=== PATIENT | female | born 1935 | race Caucasian/White ===

== ENCOUNTER 2020-11-17 18:45 | Observation (INO) | payer OTHER ==
[~2020-11-17] VITALS: Ht 162.6 cm; Wt 86.1 kg
[2020-11-17 19:00] VITALS: BP 154/75
[2020-11-17] MEDS ORDERED: FURO20TA4 PO (20:39)
[2020-11-17] MEDS ORDERED: ALPR0.5T8 PO (20:39)
[2020-11-17] MEDS ORDERED: [UNRECOGNIZED DRUG - CODE] TP (20:39)
[2020-11-17] MEDS ORDERED: ATOR10 PO (20:49)
[2020-11-17] MEDS ORDERED: AMLO5TAB4 PO (20:49)
[2020-11-17] MEDS ORDERED: CARV3.12 PO (20:49)
[2020-11-17] MEDS ORDERED: EZET10TA48 PO (20:49)
[2020-11-17] MEDS ORDERED: CEFT1VIA15 IV (20:49)
[2020-11-17] MEDS ORDERED: ENOX40DI9 SQ (20:57)
[2020-11-17] MEDS ORDERED: ALBUHFA IH (20:57)
[2020-11-17] MEDS ORDERED: MORPHINE 4 MG SYG IV PRN (21:00)
[2020-11-17] MEDS ORDERED: HYDRALAZINE 20MG/ML VIAL IV PRN (21:00)
[2020-11-17] MEDS ORDERED: MORPHINE 2 MG SYG IV PRN (21:00)
[2020-11-17] MEDS ORDERED: TEMA15CA PO (21:06)
[2020-11-17] MEDS ORDERED: TEMAZEPAM 15 MG CAPSULE PO PRN (21:30)
[2020-11-17] MEDS ORDERED: TROLAMINE SALICYLATE CREAM 85 GM TUBE TP PRN (21:30)
[2020-11-17] MEDS ORDERED: ALPRAZOLAM 0.5 MG TABLET PO PRN (21:30)
[2020-11-17] MEDS: FAMOTIDINE 20MG VIAL IV SCH (22:49)
[2020-11-18] VITALS (13 sets, daily range): BP systolic 120–161; BP diastolic 46–76
[2020-11-18 04:07] LABS: BASOPHILS % (AUTO) 0.8 % (0.0-5.0); EOSINOPHILS % (AUTO) 3.5 % (0.0-8.0); LYMPHOCYTES % (AUTO) 43.8 % (21.0-51.0); MEAN CORPUSCULAR HEMOGLOBIN 27.7 pg (27.0-33.0); MEAN CORPUSCULAR HGB CONC 32.6 g/dL (32.0-36.0); MEAN CORPUSCULAR VOLUME 85.2 fL (79-99); MONOCYTES % (AUTO) 12.9 % (3.0-13.0); NEUTROPHILS % (AUTO) 38.9 % (40.0-77.0); PLATELET COUNT (AUTO) 217 K/uL (130-400); RED BLOOD CELL COUNT(AUTO) 4.58 MIL/uL (4.00-5.50); RED CELL DISTRIBUTION WIDTH 13.4 % (11.0-15.5); WHITE BLOOD COUNT (AUTO) 8.8 K/uL (4.8-10.8)
[2020-11-18 04:24] LABS: ALBUMIN 3.8 g/dL (3.5-5.0); BILIRUBIN,TOTAL 0.3 mg/dL (0.2-1.0); POTASSIUM 3.4 mmol/L (3.5-5.1); TOTAL PROTEIN, SERUM 7.1 g/dL (6.0-8.3)
[2020-11-18] MEDS ORDERED: LIDOCAINE HCL-MPF 1% 2ML VIAL IV PRN (04:30)
[2020-11-18] MEDS ORDERED: POTASSIUM CHLORIDE 20MEQ/100ML 100 ML IV PRN (04:30)
[2020-11-18 04:51] LABS: INR 1.03 (0.85-1.15); PROTHROMBIN TIME 11.2 SEC (9.6-11.6)
[2020-11-18 04:52] LABS: PARTIAL THROMBOPLASTIN TIME 27.6 SEC (26.3-35.5)
[2020-11-18] MEDS ORDERED: POTASSIUM CHLORIDE 20MEQ/100ML 100 ML IV ONE (05:42)
[2020-11-18] MEDS ORDERED: POTASSIUM CHLORIDE 10% ELIXIR 20 MEQ/15 ML UDCUP PO PRN (08:30)
[2020-11-18] MEDS ORDERED: IOHEXOL-350 50ML VIAL IV ONE (08:47)
[2020-11-18] MEDS ORDERED: IOHEXOL-350 75 ML VIAL IV ONE (08:47)
[2020-11-18] MEDS ORDERED: NITROGLYCERIN 2 MG VIAL IV ONE (08:47)
[2020-11-18] MEDS ORDERED: FENTANYL CITRATE PF 50 MCG/1 ML 2ML VIAL ONE (08:48)
[2020-11-18] MEDS ORDERED: MIDAZOLAM HCL 1 MG/ML 2ML VIAL ONE (08:48)
[2020-11-18] MEDS ORDERED: LIDOCAINE HCL 400MG/20ML VIAL ONE (08:48)
[2020-11-18] MEDS: ENOXAPARIN SODIUM 30 MG/0.3 ML SQ SCH (09:00)
[2020-11-18] MEDS ORDERED: ENOXAPARIN SODIUM 40 MG/0.4 ML SYRINGE SQ SCH (09:00)
[2020-11-18] MEDS ORDERED: FUROSEMIDE 20 MG TABLET PO SCH (09:00)
[2020-11-18] MEDS ORDERED: CARVEDILOL 3.125 MG TABLET PO SCH (09:00)
[2020-11-18] MEDS: FAMOTIDINE 20MG VIAL IV SCH (10:30)
[2020-11-18] MEDS: FUROSEMIDE 20 MG TABLET PO SCH ×2 (10:30→16:50)
[2020-11-18] MEDS: CEFTRIAXONE 1G VIAL IVP SCH (10:30)
[2020-11-18] MEDS: EZETIMIBE 10 MG TAB PO SCH (10:31)
[2020-11-18] MEDS: AMLODIPINE 5 MG TAB PO SCH (10:31)
[2020-11-18] MEDS: LISINOPRIL 10 MG TABLET PO SCH (10:35)
[2020-11-18] MEDS: KCL 20 MEQ ERTAB PO PRN ×3 (10:35→14:38)
[2020-11-18] MEDS ORDERED: PHARMACY COMMUNICATION MISC SCH (15:30)
[2020-11-18] MEDS: CARVEDILOL 3.125 MG TABLET PO SCH (20:21)
[2020-11-18] MEDS ORDERED: ATORVASTATIN 20 MG TABLET PO SCH (21:00)
[2020-11-19 03:54] LABS: CREATININE 1.2 mg/dL (0.5-1.5); POTASSIUM 4.1 mmol/L (3.5-5.1)
[2020-11-19 03:57] VITALS: BP 118/58
[2020-11-19 05:51] LABS: HEMATOCRIT 40.7 % (36-48); MEAN CORPUSCULAR HEMOGLOBIN 28.3 pg (27.0-33.0); MEAN CORPUSCULAR HGB CONC 31.4 g/dL (32.0-36.0); RED BLOOD CELL COUNT(AUTO) 4.52 MIL/uL (4.00-5.50); RED CELL DISTRIBUTION WIDTH 13.7 % (11.0-15.5); WHITE BLOOD COUNT (AUTO) 9.2 K/uL (4.8-10.8)
[2020-11-19 07:48] VITALS: BP 125/60
[2020-11-19] MEDS: LISINOPRIL 10 MG TABLET PO SCH (08:29)
[2020-11-19] MEDS: CARVEDILOL 3.125 MG TABLET PO SCH (08:30)
[2020-11-19] MEDS: AMLODIPINE 5 MG TAB PO SCH (08:30)
[2020-11-19] MEDS: FUROSEMIDE 20 MG TABLET PO SCH (08:30)
[2020-11-19] MEDS: CEFTRIAXONE 1G VIAL IVP SCH (08:31)
[2020-11-19] MEDS: EZETIMIBE 10 MG TAB PO SCH (08:31)
[2020-11-19] MEDS: ENOXAPARIN SODIUM 30 MG/0.3 ML SQ SCH (08:34)
[2020-11-19] MEDS ORDERED: FAMOTIDINE 20MG TAB PO SCH (09:00)
[2020-11-19 11:25] VITALS: BP 135/57
[2020-11-19] MEDS ORDERED: AMLO5TAB4 PO (13:16)
[2020-11-19] MEDS ORDERED: FURO20TA4 PO (13:16)
[2020-11-19] MEDS ORDERED: ATOR10 PO (13:16)
[2020-11-19] MEDS ORDERED: CEPH500B PO (13:16)
[2020-11-19] MEDS ORDERED: CARV3.12 PO (13:16)
[2020-11-19] MEDS ORDERED: POTA10TA18 PO (13:17)
[2020-11-19] MEDS ORDERED: LISI10TA24 PO (13:30)
== END 2020-11-19 16:57 | disposition home or self-care (01) ==
LOC: 4DH 18:45 → INTOOBSV 18:45
PROVIDERS: ADMIT Internal Medicine; ATTEND Internal Medicine
DX: I25.10 Atherosclerotic heart disease of native coronary artery without angina pectoris (principal); I25.5 Ischemic cardiomyopathy; I11.0 Hypertensive heart disease with heart failure; I50.43 Acute on chronic combined systolic (congestive) and diastolic (congestive) heart failure; I44.7 Left bundle-branch block, unspecified; F41.9 Anxiety disorder, unspecified; M19.90 Unspecified osteoarthritis, unspecified site; E78.5 Hyperlipidemia, unspecified; N30.90 Cystitis, unspecified without hematuria; B96.20 Unspecified Escherichia coli [E. coli] as the cause of diseases classified elsewhere; Z85.3 Personal history of malignant neoplasm of breast; Z90.710 Acquired absence of both cervix and uterus; Z79.899 Other long term (current) drug therapy; Z98.890 Other specified postprocedural states
CPT/HCPCS: 36415 ×2; 80048; 80053; 85025; 85027; 85610; 85730; 93458; 96361; 96372; 96374; 96375; 96376 ×2; 97039; 97116; 97161; C1894 ×2; G0378 ×29; G8978; G8980 ×2; G8981; G8983 ×2; J0696 ×2; J1644; J1650; J2250; J3010; J3480; J3490 ×5; Q9965; Q9967 ×2; 99156; 99157

== ENCOUNTER 2021-04-03 09:36 | Observation (INO) | payer OTHER ==
[2021-03-30 09:29] LABS: HEMATOCRIT 40.3 % (36-48); MEAN CORPUSCULAR HEMOGLOBIN 27.4 pg (27.0-33.0); MEAN CORPUSCULAR HGB CONC 31.5 g/dL (32.0-36.0); MEAN CORPUSCULAR VOLUME 86.9 fL (79-99); MONOCYTES % (AUTO) 10.9 % (3.0-13.0); PLATELET COUNT (AUTO) 244 K/uL (130-400); RED BLOOD CELL COUNT(AUTO) 4.64 MIL/uL (4.00-5.50); RED CELL DISTRIBUTION WIDTH 13.5 % (11.0-15.5)
[2021-03-30 09:41] LABS: CREATININE 0.8 mg/dL (0.5-1.5); POTASSIUM 4.6 mmol/L (3.5-5.1)
[2021-03-30 09:45] LABS: INR 1.01 (0.85-1.15)
[2021-03-30 09:46] LABS: PARTIAL THROMBOPLASTIN TIME 28.8 SEC (26.3-35.5)
[2021-03-31 16:36] VITALS: BP 180/78
[2021-04-03] VITALS (12 sets, daily range): BP systolic 136–183; BP diastolic 58–79
[~2021-04-03] VITALS: Ht 165.1 cm; Wt 87.8 kg
[~2021-04-03 09:36] MED LIST: 0.9%NACL 1000ML 1,000 ML IV SCH; ALBUHFA IH; AMLO5TAB4 PO; ATOR10 PO; CARV3.12 PO; EZET10TA48 PO; FURO20TA4 PO; LISI10TA24 PO; POTA-187 PO; TEMA15CA PO; [UNRECOGNIZED DRUG - CODE] TP
[2021-04-03] MEDS ORDERED: LIDOCAINE HCL 1% MDV 50ML VIAL ONE (15:31)
[2021-04-03] MEDS ORDERED: IODIXANOL 320 MG/ML 100 ML VIAL ONE (15:31)
[2021-04-03] MEDS ORDERED: BUPIVACAINE/PF 0.25% 30ML VIAL IJ ONE (15:31)
[2021-04-03] MEDS ORDERED: CEFAZOLIN SODIUM 1 GM VIAL ONE (15:31)
[2021-04-03] MEDS ORDERED: MEPERIDINE-PF 25 MG/ML SYG ONE ×4 (16:01→16:34)
[2021-04-03] MEDS ORDERED: MIDAZOLAM HCL 1 MG/ML 2ML VIAL ONE ×4 (16:01→16:34)
[2021-04-03] MEDS ORDERED: ONDANSETRON 4MG INJ IV PRN ×2 (18:00→23:00)
[2021-04-03] MEDS ORDERED: ACETAMINOPHEN 325 MG TAB PO PRN ×4 (18:00→23:00)
[2021-04-03] MEDS: CEFAZOLIN SODIUM 1 GM VIAL IVP SCH (22:30)
[2021-04-03] MEDS ORDERED: KETOROLAC 15MG/ML VIAL (15MG/ML) ONE (22:52)
[2021-04-03] MEDS ORDERED: KETOROLAC 15MG/ML VIAL (15MG/ML) IV ONE (23:00)
[2021-04-03] MEDS ORDERED: NITROGLYCERIN 0.4 MG SL TAB SL PRN (23:00)
[2021-04-03] MEDS ORDERED: ACETAMINOPHEN 500 MG TABLET PO ONE (23:30)
[2021-04-04 03:59] LABS: BASOPHILS % (AUTO) 0.6 % (0.0-5.0); HEMATOCRIT 36.2 % (36-48); LYMPHOCYTES % (AUTO) 25.3 % (21.0-51.0); MEAN CORPUSCULAR HEMOGLOBIN 27.7 pg (27.0-33.0); MEAN CORPUSCULAR HGB CONC 32.9 g/dL (32.0-36.0); MEAN CORPUSCULAR VOLUME 84.2 fL (79-99); MONOCYTES % (AUTO) 10.4 % (3.0-13.0); NEUTROPHILS % (AUTO) 62.4 % (40.0-77.0); PLATELET COUNT (AUTO) 196 K/uL (130-400); RED CELL DISTRIBUTION WIDTH 13.2 % (11.0-15.5); WHITE BLOOD COUNT (AUTO) 10.2 K/uL (4.8-10.8)
[2021-04-04 04:04] VITALS: BP 143/66
[2021-04-04 04:53] LABS: ALBUMIN 3.2 g/dL (3.5-5.0); BILIRUBIN,TOTAL 0.5 mg/dL (0.2-1.0); CREATININE 0.7 mg/dL (0.5-1.5); MAGNESIUM 1.8 mg/dL (1.80-2.40); POTASSIUM 3.9 mmol/L (3.5-5.1); TOTAL PROTEIN, SERUM 6.7 g/dL (6.0-8.3)
[2021-04-04] MEDS: CEFAZOLIN SODIUM 1 GM VIAL IVP SCH (05:40)
[2021-04-04 08:42] VITALS: BP 149/70
[2021-04-04] MEDS ORDERED: DOXYCYCLINE HYCLATE 100 MG TABLET PO SCH (09:00)
[2021-04-04] MEDS ORDERED: SACUBITRIL/VALSARTAN 1 EACH TABLET PO SCH (09:00)
[2021-04-04] MEDS ORDERED: FAMOTIDINE 20MG TAB PO SCH (09:00)
[2021-04-04] MEDS ORDERED: ENOXAPARIN SODIUM 40 MG/0.4 ML SYRINGE SQ SCH (09:00)
[2021-04-04] MEDS ORDERED: CARVEDILOL 12.5 MG TABLET PO SCH (09:00)
[2021-04-04 12:24] VITALS: BP 128/51
[2021-04-04] MEDS ORDERED: KETOROLAC 15MG/ML VIAL (15MG/ML) IV ONE (13:30)
[2021-04-04] MEDS ORDERED: SACU1TAB PO (13:35)
[2021-04-04] MEDS ORDERED: DOXY100T2 PO (13:35)
[2021-04-04] MEDS ORDERED: CARV12.580 PO (13:35)
[2021-04-04 17:04] VITALS: BP 166/70
== END 2021-04-04 17:15 | disposition home or self-care (01) ==
LOC: DAH 09:36 → 4DH 09:37 → DAH 17:40
PROVIDERS: ADMIT Internal Medicine; ATTEND Internal Medicine Cardiovascular Disease
DX: I42.0 Dilated cardiomyopathy (principal); E66.9 Obesity, unspecified; I11.0 Hypertensive heart disease with heart failure; I50.42 Chronic combined systolic (congestive) and diastolic (congestive) heart failure; G47.33 Obstructive sleep apnea (adult) (pediatric); I45.2 Bifascicular block; E78.5 Hyperlipidemia, unspecified; Z68.32 Body mass index [BMI] 32.0-32.9, adult; Z79.899 Other long term (current) drug therapy; Z90.711 Acquired absence of uterus with remaining cervical stump; Z95.0 Presence of cardiac pacemaker; Z90.11 Acquired absence of right breast and nipple; Z86.61 Personal history of infections of the central nervous system; Z85.3 Personal history of malignant neoplasm of breast
CPT/HCPCS: 33225; 33249; 36415 ×2; 71046; 80048; 80053; 83735; 85025 ×2; 85610; 85730; 93005 ×2; 96372; 96374; 96375; 96376; A4215; A4216; A4221; A4222; A4223 ×3; A4606; A4663; C1769 ×2; C1882; C1894; C1895; C1896; C1900; G0378 ×23; J0690 ×3; J1650; J1885 ×2; J2175 ×4; J2250 ×4; J3490 ×2; J7030; Q9967; 99156; 99157